=== PATIENT | female | born 1985 | race Caucasian/White ===

== ENCOUNTER 2018-03-20 12:36 | Emergency (ER) | payer SELFPAY ==
[~2018-03-20] VITALS: Ht 165.1 cm; Wt 117.9 kg
[~2018-03-20 12:36] MED LIST: ACHD5005 PO; CEPH500C PO; DCS100C PO; HYDR-3720 PO; IBP800T PO; NAPR275T51 PO; NITR100C3 PO; PHENERGAN; PREN1TAB19 PO
--- OUTSIDE RECORDS SUMMARY | 2018-03-20 12:41 | XMS REPORT ---
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 105536902 Problem Unspecified mood [affective] disorder F39 Active 07995019 Problem Personality disorder F60.9 Active 22828621 Problem HTN (hypertension) I10 Active 96607381 Problem Obesity E66.9 Active 451163141 Problem Panic attacks F41.0 Active 196068582 Problem Bipolar disorder, unspecified F31.9 Active 23381178 ALLERGIES No Known Allergies ENCOUNTERS Encounter Location Date Diagnosis [facility] [id number] [place] [address] 27798- 6989 Jan, [facility] [id number] [place] [address] 77422- 9913 Dec, Panic attacks F41.0 ; Personality disorder F60.9 and Unspecified mood [affective] disorder F39 [facility] [address] [place] [address] 69139- 3200 Jul, Bipolar disorder, unspecified F31.9 ; Panic attacks F41.0 and Personality disorder F60.9 [facility] [id number] [place] [address] 81404- 4278 Jul, Bipolar disorder, unspecified F31.9 ; Panic attacks F41.0 and Personality disorder F60.9 [facility] [address] [place] [address] 00970- 9120 Jun, [facility] [id number] [place] [address] 89665- 0216 May, [facility] [id number] [place] [address] 01270- 8652 16 May, 2017 Bipolar disorder, unspecified F31.9 ; Panic attacks F41.0 and Personality disorder F60.9 [facility] [id number] [place] [address] 57730- 0890 13 May, 2017 Bipolar disorder, unspecified F31.9 ; Panic attacks F41.0 and Personality disorder F60.9 [place] [address] [address]- [address]32 Apr, Bipolar disorder, unspecified F31.9 and Panic attacks F41.0 [facility] [address] 38640 -9395 Mar, Homelessness Z59.0 ; Viral gastroenteritis A08.4 and BMI 40.0-44.9, adult Z68.[address] 8[address]16- 8613 August, Acute adjustment disorder with mixed anxiety and depressed mood F43.23 ; Excessive anger R45.4 and Generalized anxiety disorder F41.1 [facility] [address] [id number] Apr, Dental examination Z01.20 and Dental caries K02.[address] 31433- 8409 Feb, HTN (hypertension) I10 and Obesity E66.9 [place] [address] 57542- 1182 Feb, [address] 01465- 4865 Feb, Bronchitis J40 [place] [address] 42584- 9587 14 Jul, [address] 10803- 6215 Jul, [facility] [place] [facility] [address] [id number] [place] [address] 1300 Sep, [facility] [place] [facility] [address] [id number] [place] [address]- 7556 Sep, [facility] [place] [facility] [address] [id number] [place] [address]- 3377 Sep, [facility] [place] [facility] [address] [id number] [place] [address]- 9229 Sep, [facility] [place] [facility] [address] [id number] [place] [address]- 6474 Sep, [facility] [place] [facility] [address] [id number] [place] [address]- 9288 Sep, [facility] [place] [facility] [address] [id number] [place] [address]- 0622 Sep, [facility] [place] [facility] [address] [id number] [place] [address]- 3361 Sep, [facility] [place] [facility] [address] [id number] [place] [address]- 0402 Feb, [facility] [place] [facility] [address] [id number], [place] [address]- 0691 Feb, [facility] [place] [facility] [address] [id number], [place] [address]- 2486 Jan, [facility] [place] [facility] [address] [id number][place] [address]- 0560 22 Jan, 2013 [facility] [place] [facility] [address] [id number] [place] [address]- 2569 17 Jan, 2013 [facility] [place] [facility] [address] [id number], [place] [address]- 7520 17 Jan, 2013 [facility] [place] [facility] [address] [id number][place] [address]- 4298 14 Jan, 2013 [facility] [place] [facility] [address] [id number], [place] [address]- 7032 13 Jan, 2013 [facility] [address] [id number] [place] [address]- 3700 11 Jan, 2013 [facility] [place] [facility] [address] [id number], [place] [address]- 0088 11 Jan, 2013 [facility] [address] [id number] [place] [address]- 9392 10 Jan, 2013 [facility] [address] [id number] [place] [address]- 3260 10 Jan, 2013 [facility] [address] [id number] [place] [address]- 3494 26 Dec, 2012 [facility] [address] [id number] [place] [address]- 2654 19 Dec, 2012 [facility] [address] [id number] [place] [address]- 3270 17 Dec, 2012 [facility] [address] [id number] [place] [address]- 9977 13 Dec, 2012 [facility] [address] [id number] [place] [address]- 5969 12 Dec, 2012 [facility] [address] [id number] [place] [address]- 6740 13 Nov, 2012 [facility] [address] [id number], [place] [address]- 2390 Jul, [facility] [place] [facility] [address] [id number], [place] [address]- 4275 09 Jul, 2012 [facility] [place] [facility] [address] [id number], [place] [address]- 5708 04 Jul, 2012 [facility] [place] [facility] [address] [id number][place] [address]- 3795 03 Jul, 2012 [facility] [place] [facility] [address] [id number] [place] [address]- 2988 Jul, [facility] [place] [facility] [address] [facility] [id number][place] [address]- 7474 Jul, [facility] [address] [id number] [address]- 8481 Jun, [facility] [address] [address] Jun, [facility] [address] [id number] [address]- 3195 Jun, [facility] [address] [id number], [place] [address]- 1002 Dec, [facility] [address], [place] [address]- 9282 Dec, [facility] [address] [id number], [place] [address]- 6306 Apr, IMMUNIZATIONS No Known Immunizations SOCIAL HISTORY Never Assessed REASON FOR VISIT Psychiatric f/u Ren PLAN OF CARE Activity Details Follow Up 4 Weeks Reason: f/u VITAL SIGNS Height 66 in 2017-12-28 Weight 266.6 lbs 2017-12-28 Heart Rate 92 bpm 2017-12-28 Respiratory Rate 20 2017-12-28 BMI 43.03 kg/m2 2017-12-28 Blood pressure systolic 128 mmHg 2017-12-28 Blood pressure diastolic 86 mmHg 2017-12-28 MEDICATIONS Medication Instructions Dosage Frequency Start Date End Date Duration Status Lisinopril-Hydrochlorothiazide 20-25 MG Orally Once a day take 1 tablet by Oral route 1 time per day 24h 16 Sep, 2013 Not-Taking Oxycodone-Acetaminophen 5-325 MG Orally every 4 hrs 2 tablet as needed 4h Not-Taking Zofran ODT 4 MG Orally every 8 hrs 1 tablet on the tongue and allow to dissolve 8h Mar, 10 days Not-Taking Gabapentin 100 mg Orally Three times a day 1 capsule 8h 26 Dec, 2017 30 day(s) Active Ibuprofen 800 mg take 1 tablet (800 mg) by oral route 3 times per day with food Sep, Not-Taking Crestor 20 mg 1 tablet by Oral route 1 time per day Sep, Not-Taking RESULTS Name Result Date Reference Range URINE DRUG SCREEN (IN HOUSE) Lot # [id number] Exp date 12/2018 Control + COCAINE negative AMPH negative MTD negative THC positive OPIATE negativE BENZO negative PCP negative BAR negative OXY negative MAMP negative BUP negative MDMA negative TCA PROCEDURES Procedure Date Ordered Result Body Site DRUG TEST PRSMV DIR OPT OBS Dec 28, 2017 INSTRUCTIONS MEDICATIONS ADMINISTERED No Known Medications MEDICAL (GENERAL) HISTORY Type Description Date Medical History Hypertension, she said it has been normal lately when it is checked (04/2017) Medical History Broken toe right great toe Surgical History Hernia repair by Dr. Fam Surgical History Tubal ligation Hospitalization History broken toe ER visit 03/2017
--- OUTSIDE RECORDS SUMMARY | 2018-03-20 12:41 | XMS REPORT ---
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 334243251 Problem Bipolar disorder, unspecified F31.9 Active 37089200 Problem HTN (hypertension) I10 Active 98621038 ALLERGIES No Known Allergies ENCOUNTERS Encounter Location Date Diagnosis [place] [address] [address]- 67[address] Jul, Bipolar disorder, unspecified F31.9 ; Panic attacks F41.0 and Personality disorder F60.9 [place] [id number] [place] [address] 41885- 0656 Jul, Bipolar disorder, unspecified F31.9 ; Panic attacks F41.0 and Personality disorder F60.9 [place] [id number] [place] [address] 28562- 8267 Jun, [place] [id number] [place] [address] 30345- 1107 May, [place] [address] 76833- 1596 May, Bipolar disorder, unspecified F31.9 ; Panic attacks F41.0 and Personality disorder F60.9 [place] [id number] [place] [address] 88319- 2928 May, Bipolar disorder, unspecified F31.9 ; Panic attacks F41.0 and Personality disorder F60.9 [facility] [id number] [place] [address] 34426- 2162 Apr, Bipolar disorder, unspecified F31.9 and Panic attacks F41.0 [facility] [address] [place] [address] 90119 -0135 Mar, Homelessness Z59.0 ; Viral gastroenteritis A08.4 and BMI 40.0-44.9, adult Z68.41 [facility] [id number] [place] [address] 16206- 8701 August, Acute adjustment disorder with mixed anxiety and depressed mood F43.23 ; Excessive anger R45.4 and Generalized anxiety disorder F41.1 [facility] [id number] [place] [address] [id number] 04 Apr, 2015 Dental examination Z01.20 and Dental caries K02.9 [facility] [id number] [place] [address] 48566- 0267 Feb, HTN (hypertension) I10 and Obesity E66.9 [facility] [address] 56108- 9637 Feb, [facility] [id number] [place] [address] 03329- 3016 Feb, Bronchitis J40 [facility] [id number] [place] [address] 42443- 1960 14 Jul, 2014 [facility] [id number] [place] [address] 83083- 2304 13 Jul, 2014 [facility] [address] 96715- 4663 Sep, [facility] [address] 85566- 6333 Sep, [facility] [id number] [place] [address] 56167- 7626 Sep, [facility] [place] [facility] [address] [id number] [place] [address]- 4047 Sep, [facility] [place] [facility] [address] [id number] [place] [address]- 5847 Sep, [facility] [place] [facility] [address] [id number] [place] [address]- 0632 Sep, [facility] [place] [facility] [address] [id number] [place] [address]- 6619 Sep, [facility] [place] [facility] [address] [id number] [place] [address]- 4389 Sep, [facility] [place] [facility] [address] [id number] [place] [address]- 1300 Feb, [facility] [place] [facility] [address] [id number] [place] [address]- 7705 Feb, [facility] [place] [facility] [address] [id number] [place] [address]- 5529 Jan, [facility] [place] [facility] [address] [id number] [place] [address]- 3601 Jan, [facility] [place] [facility] [address] [id number] [place] [address]- 5768 17 Jan, 2013 [facility] [place] [facility] [address] [id number] [place] [address]- 7483 17 Jan, 2013 [facility] [place] [facility] [address] [id number] [place] [address]- 6942 14 Jan, 2013 [facility] [place] [facility] [address] [id number] [place] [address]- 7496 13 Jan, 2013 [facility] [place] [facility] [address] [id number] [place] [address]- 0642 11 Jan, 2013 [facility] [place] [facility] [address] [id number] [place] [address]- 3199 11 Jan, 2013 [facility] [place] [facility] [address] [id number] [place] [address]- 5170 10 Jan, 2013 [facility] [address] [id number] [place] [address]- 2360 10 Jan, 2013 [facility] [place] [facility] [address] [id number] [place] [address]- 1907 26 Dec, 2012 [facility] [place] [facility] [address] [id number] [place] [address]- 9871 19 Dec, 2012 [facility] [place] [facility] [address] [id number] [place] [address]- 6474 17 Dec, 2012 [facility] [address] [id number] [place] [address]- 7197 13 Dec, 2012 [facility] [place] [facility] [address] [id number] [place] [address]- 2878 12 Dec, 2012 [facility] [address] [id number] [place] [address]- 6761 Nov, [facility] [place] [facility] [address] [id number], [place] [address]- 0941 Jul, [facility] [place] [facility] [address] [id number] [place] [address]- 2893 Jul, [facility] [place] [facility] [address] [id number] [place] [address]- 9427 Jul, [facility] [place] [facility] [address] [id number], [place] [address]- 3508 Jul, [facility] [place] [facility] [address] [id number], [place] [address]- 7882 Jul, [facility] [place] [facility] [address] [id number] [place] 5905 Jul, [facility] [place] [facility] [address] [id number], [place] [address]- 8928 Jun, [facility] [place] [facility] [address] [id number] [place] 9943 Jun, [facility] [place] [facility] [address] [facility] [id number] [place] [address]- 1824 Jun, [facility] [address] [facility] [id number], [place] [address]- 6374 Dec, [facility] [address] [facility] [id number], [place] [address]- 6815 Dec, [facility] [address] [facility] [id number], [place] [address]- 9270 Apr, IMMUNIZATIONS No Known Immunizations SOCIAL HISTORY Never Assessed REASON FOR VISIT Psychiatric f/u PLAN OF CARE Activity Details Follow Up 3 Weeks Reason:BH f/u VITAL SIGNS Height 66 in 2017-07-14 Weight 268 lbs 2017-07-14 Heart Rate 90 bpm 2017-07-14 Respiratory Rate 20 2017-07-14 BMI 43.25 kg/m2 2017-07-14 Blood pressure systolic 132 mmHg 2017-07-14 Blood pressure diastolic 78 mmHg 2017-07-14 MEDICATIONS Medication Instructions Dosage Frequency Start Date End Date Duration Status Zofran ODT 4 MG Orally every 8 hrs 1 tablet on the tongue and allow to dissolve 8h Mar, 10 days Not-Taking Lisinopril-Hydrochlorothiazide 20-25 MG Orally Once a day take 1 tablet by Oral route 1 time per day 24h Sep, Not-Taking Trileptal 150 MG Orally Twice a day 1 tablet 12h Jul, 30 day(s ) Active Crestor 20 mg 1 tablet by Oral route 1 time per day Sep, Not-Taking Oxycodone-Acetaminophen 5-325 MG Orally every 4 hrs 2 tablet as needed 4h Not-Taking Ibuprofen 800 mg take 1 tablet (800 mg) by oral route 3 times per day with food Sep, Not-Taking RESULTS No Results PROCEDURES No Known procedures INSTRUCTIONS MEDICATIONS ADMINISTERED No Known Medications MEDICAL (GENERAL) HISTORY Type Description Date Medical History Hypertension, she said it has been normal lately when it is checked (04/2017) Medical History Broken toe right great toe Surgical History Hernia repair by Dr. Fam Surgical History Tubal ligation Hospitalization History broken toe ER visit 03/2017
--- OUTSIDE RECORDS SUMMARY | 2018-03-20 12:41 | XMS REPORT ---
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 507435249 Problem Bipolar disorder, unspecified F31.9 Active 26555481 Problem HTN (hypertension) I10 Active 40281807 ALLERGIES No Information ENCOUNTERS Encounter Location Date Diagnosis [place] [address] [address]- [address]69 Jul, Bipolar disorder, unspecified F31.9 ; Panic attacks F41.0 and Personality disorder F60.9 [place] [address] 56717- 2815 Jul, Bipolar disorder, unspecified F31.9 ; Panic attacks F41.0 and Personality disorder F60.9 [place] [address] [id number] [place] [address] 03521- 0121 Jun, [place] [address] [place] [address] [id number] [place] [address] 97981- 9915 May, [place] [address] 11676- 6388 May, Bipolar disorder, unspecified F31.9 ; Panic attacks F41.0 and Personality disorder F60.9 [place] [address] [place] [id number] [place] [address] 26617- 3068 May, Bipolar disorder, unspecified F31.9 ; Panic attacks F41.0 and Personality disorder F60.9 [facility] [id number] [place] [address] 76000- 1263 Apr, Bipolar disorder, unspecified F31.9 and Panic attacks F41.0 [facility] [address] [place] [address] 54060 -0639 Mar, Homelessness Z59.0 ; Viral gastroenteritis A08.4 and BMI 40.0-44.9, adult Z68.41 [facility] [id number] [place] [address] 19259- 7032 August, Acute adjustment disorder with mixed anxiety and depressed mood F43.23 ; Excessive anger R45.4 and Generalized anxiety disorder F41.1 [facility] [id number] [place] [address] [id number] 04 Apr, 2015 Dental examination Z01.20 and Dental caries K02.9 [facility] [address] [id number] [place] [address] 60635- 9261 Feb, HTN (hypertension) I10 and Obesity E66.9 [facility] [address] 53696- 5895 Feb, [facility] [address] [place] [id number] [place] [address] 05555- 9407 Feb, Bronchitis J40 [facility] [address] [place] [address] [id number] [place] [address] 63808- 5136 14 Jul, 2014 [facility] [address] [place] [id number] [place] [address] 86115- 1184 13 Jul, 2014 [facility] [address] 60297- 6894 Sep, [facility] [address] 93044- 8790 Sep, [facility] [address] [place] [address] [id number] [place] [address] 18822- 7013 Sep, [facility] [place] [facility] [address] [id number] [place] [address]- 3671 Sep, [facility] [place] [facility] [address] [id number] [place] [address]- 3320 Sep, [facility] [place] [facility] [address] [id number] [place] [address]- 9798 Sep, [facility] [place] [facility] [address] [id number] [place] [address]- 4080 Sep, [facility] [place] [facility] [address] [id number] [place] [address]- 5418 Sep, [facility] [place] [facility] [address] [id number] [place] [address]- 6442 Feb, [facility] [place] [facility] [address] [id number] [place] [address]- 4387 Feb, [facility] [place] [facility] [address] [id number] [place] [address]- 1402 Jan, [facility] [place] [facility] [address] [id number] [place] [address]- 9521 Jan, [facility] [place] [facility] [address] [id number] [place] [address]- 2565 17 Jan, 2013 [facility] [place] [facility] [address] [id number] [place] [address]- 6612 17 Jan, 2013 [facility] [place] [facility] [address] [id number] [place] [address]- 3785 14 Jan, 2013 [facility] [place] [facility] [address] [id number] [place] [address]- 1271 13 Jan, 2013 [facility] [place] [facility] [address] [id number] [place] [address]- 5432 11 Jan, 2013 [facility] [place] [facility] [address] [id number] [place] [address]- 8265 11 Jan, 2013 [facility] [place] [facility] [address] [id number] [place] [address]- 5821 10 Jan, 2013 [facility] [address] [id number] [place] [address]- 0767 10 Jan, 2013 [facility] [place] [facility] [address] [id number] [place] [address]- 2742 26 Dec, 2012 [facility] [place] [facility] [address] [id number] [place] [address]- 1298 19 Dec, 2012 [facility] [place] [facility] [address] [id number] [place] [address] 17 Dec, 2012 [facility] [address] [id number] [place] [address] 13 Dec, 2012 [facility] [place] [facility] [address] [id number] [place] [address] 12 Dec, 2012 [facility] [address] [id number] [place] [address] Nov, [facility] [place] [facility] [address] [id number], [place] [address] Jul, [facility] [place] [facility] [address] [id number] [place] [address] Jul, [facility] [place] [facility] [address] [id number] [place] [address] Jul, [facility] [place] [facility] [address] [id number], [place] [address] Jul, [facility] [place] [facility] [address] [id number], [place] [address] Jul, [facility] [place] [facility] [address] [id number] [place] [address] Jul, [facility] [place] [facility] [address] [id number], [place] [address] Jun, [facility] [place] [facility] [address] [id number] [place] [address] Jun, [facility] [place] [facility] [address] [facility] [id number] [place] [address] Jun, [facility] [address] [facility] [id number] [place] [address] Dec, [facility] [address] [facility] [id number], [place] [address] Dec, [facility] [address] [facility] [id number], [place] [address] Apr, IMMUNIZATIONS No Known Immunizations SOCIAL HISTORY Never Assessed REASON FOR VISIT Requests return call PLAN OF CARE VITAL SIGNS MEDICATIONS No Known Medications RESULTS No Results PROCEDURES No Known procedures [...]
--- OUTSIDE RECORDS SUMMARY | 2018-03-20 12:41 | XMS REPORT ---
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.81 Active 072223783 Problem Bipolar disorder, unspecified F31.9 Active 29119568 Problem HTN (hypertension) I10 Active 59843204 ALLERGIES No Information ENCOUNTERS Encounter Location Date Diagnosis [place] [address] [address] Jul, Bipolar disorder, unspecified F31.9 ; Panic attacks F41.0 and Personality disorder F60.9 [place] [address] [address] Jul, Bipolar disorder, unspecified F31.9 ; Panic attacks F41.0 and Personality disorder F60.9 [place] [address] [place] [id number] [place] [address]- 9686 Jun, [place] [address] [place] [id number] [place] [address]- 6849 May, [place] [address] [address] May, Bipolar disorder, unspecified F31.9 ; Panic attacks F41.0 and Personality disorder F60.9 [place] [address] [place] [id number] [place] [address]47- 3722 May, Bipolar disorder, unspecified F31.9 ; Panic attacks F41.0 and Personality disorder F60.9 [facility] [place] [address] [place] [id number] [place] [address]71- 7934 Apr, Bipolar disorder, unspecified F31.9 and Panic attacks F41.0 [facility] [id number] [place] [address] -[address] Mar, Homelessness Z59.0 ; Viral gastroenteritis A08.4 and BMI 40.0-44.9, adult Z68.41 [facility] [place] [address] [place] [id number] [place] [address] 94238- 6130 August, Acute adjustment disorder with mixed anxiety and depressed mood F43.23 ; Excessive anger R45.4 and Generalized anxiety disorder F41.1 [facility] [address] [place] [id number] [place] [id number] 04 Apr, 2015 Dental examination Z01.20 and Dental caries K02.9 [facility] [place] [address] [place] [id number] [place] [address] 91056- 1346 Feb, HTN (hypertension) I10 and Obesity E66.9 [facility] [place] [address] [address] Feb, [facility] [place] [address] [place] [id number] [place] [address] 90373- 8182 Feb, Bronchitis J40 [facility] [place] [address] [place] [id number] [place] [address] 18[address]- 3754 14 Jul, 2014 [facility] [place] [address] [place] [id number] [place] [address] 06642- 5758 13 Jul, 2014 [facility] [place] [address] [address]- [address] Sep, [facility] [place] [address] [address]- [address] Sep, [facility] [place] [address] [place] [id number] [place] [address] 65194- 2163 Sep, [facility] [place] [facility] [address] [id number] [place] [address] 7573 Sep, [facility] [place] [facility] [address] [id number] [place] [address]- 3544 Sep, [facility] [place] [facility] [address] [id number] [place] [address]- 2305 Sep, [facility] [place] [facility] [address] [id number] [place] [address]- 7426 Sep, [facility] [place] [facility] [address] [id number] [place] [address]- 9348 Sep, [facility] [place] [facility] [address] [id number] [place] [address]- 6493 Feb, [facility] [place] [facility] [address] [id number] [place] [address]- 2273 Feb, [facility] [place] [facility] [address] [id number] [place] [address]- 9809 Jan, [facility] [place] [facility] [address] [id number] [place] [address]- 8849 Jan, [facility] [place] [facility] [address] [id number] [place] [address]- 4609 17 Jan, 2013 [facility] [place] [facility] [address] [id number] [place] [address]- 2952 17 Jan, 2013 [facility] [place] [facility] [address] [id number] [place] [address]- 3585 14 Jan, 2013 [facility] [place] [facility] [address] [id number] [place] [address]- 7064 13 Jan, 2013 [facility] [place] [facility] [address] [id number] [place] [address]- 0014 11 Jan, 2013 [facility] [place] [facility] [address] [id number] [place] [address]- 8623 11 Jan, 2013 [facility] [place] [facility] [address] [id number] [place] [address]- 1800 10 Jan, 2013 [facility] [address] [id number] [place] [address]- 9645 10 Jan, 2013 [facility] [place] [facility] [address] [id number] [place] [address]- 4851 26 Dec, 2012 [facility] [place] [facility] [address] [id number] [place] [address]- 8406 19 Dec, 2012 [facility] [place] [facility] [address] [id number] [place] [address]- 1714 17 Dec, 2012 [facility] [address] [id number] [place] [address]- 2016 13 Dec, 2012 [facility] [place] [facility] [address] [id number] [place] [address]- 0945 12 Dec, 2012 [facility] [address] [id number] [place] [address]- 7668 Nov, [facility] [place] [facility] [address] [id number] [address] 3578 Jul, [facility] [place] [facility] [address] [id number] [place] [address]- 4238 Jul, [facility] [place] [facility] [address] [id number] [place] [address]- 4775 Jul, [facility] [place] [facility] [address] [id number] [address]- 1367 Jul, [facility] [place] [facility] [address] [id number] [place] [address]- 8046 Jul, [facility] [place] [facility] [address] [id number] [place] [address]908 Jul, [facility] [place] [facility] [address] [id number] [address]- 4060 Jun, [facility] [place] [facility] [address] [id number] [place] [address] Jun, [facility] [place] [facility] [address] [facility] [id number] [place] [address]- 7816 Jun, [facility] [place] [address] [facility] [id number] [place] [address]- 0816 Dec, [facility] [place] [address] [facility] [id number] [place] [address]- 9356 Dec, [facility] [place] [address] [facility] [id number] [place] [address]- 4336 Apr, IMMUNIZATIONS No Known Immunizations SOCIAL HISTORY Never Assessed REASON FOR VISIT f/u PLAN OF CARE Activity Details Follow Up 2 Weeks Reason: VITAL SIGNS MEDICATIONS No Known Medications RESULTS No Results PROCEDURES Procedure Date Ordered Result Body Site Psychotherapy, patient &/family, 30 minutes, established patient July 08, 2017 INSTRUCTIONS MEDICATIONS ADMINISTERED No Known Medications MEDICAL (GENERAL) HISTORY Type Description Date Medical History Hypertension, she said it has been normal lately when it is checked (04/2017) Medical History Broken toe right great toe Surgical History Hernia repair by Dr. Fam Surgical History Tubal ligation Hospitalization History broken toe ER visit 03/2017
--- OUTSIDE RECORDS SUMMARY | 2018-03-20 12:41 | XMS REPORT ---
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 Active 187575168 Problem Bipolar disorder, unspecified F31.9 Active 57323420 Problem HTN (hypertension) I10 Active 58275966 ALLERGIES No Known Allergies ENCOUNTERS Encounter Location Date Diagnosis [place] [address] [address] Jul, Bipolar disorder, unspecified F31.9 ; Panic attacks F41.0 and Personality disorder F60.9 [place] [address] [place] [id number] [place] [address]- [address]13 Jul, Bipolar disorder, unspecified F31.9 ; Panic attacks F41.0 and Personality disorder F60.9 [place] [address] [place] [id number] [place] [address]14- 0410 Jun, [place] [address] [place] [id number] [place] [address] 11429- 7028 May, [place] [address] [address]- [address] May, Bipolar disorder, unspecified F31.9 ; Panic attacks F41.0 and Personality disorder F60.9 [place] [address] [place] [id number] [place] [address] 04731- 6532 May, Bipolar disorder, unspecified F31.9 ; Panic attacks F41.0 and Personality disorder F60.9 [facility] [address] [place] [id number] [place] [address] 64840- 1031 Apr, Bipolar disorder, unspecified F31.9 and Panic attacks F41.0 [facility] [address] [place] [id number] [place] [address]117 -6737 Mar, Homelessness Z59.0 ; Viral gastroenteritis A08.4 and BMI 40.0-44.9, adult Z68.41 [facility] [address] [address]- 3682 August, Acute adjustment disorder with mixed anxiety and depressed mood F43.23 ; Excessive anger R45.4 and Generalized anxiety disorder F41.1 [facility] [address] [id number] Apr, 2015 Dental examination Z01.20 and Dental caries K02.9 [facility] [address] [address]- 6748 Feb, HTN (hypertension) I10 and Obesity E66.9 [facility] [address] [address]- 1670 09 Feb, 2015 [facility] [address] [place] [id number] [place] [address] 01121- 9041 Feb, Bronchitis J40 [facility] [address] 03137- 6701 14 Jul, 2014 [facility] [address] [place] [id number] [place] [address] 91578- 8548 13 Jul, 2014 [facility] [address] [address]25- 8227 Sep, [facility] [address] 05834- 9413 Sep, [facility] [address] 02959- 0765 Sep, [facility] [place] [facility] [address] [id number] [place] [address]- 0794 Sep, [facility] [place] [facility] [address] [id number] [place] [address]- 9751 Sep, [facility] [place] [facility] [address] [id number] [place] [address]- 9771 Sep, [facility] [place] [facility] [address] [id number] [place] [address]- 8534 Sep, [facility] [place] [facility] [address] [id number] [place] [address]- 8970 Sep, [facility] [place] [facility] [address] [id number] [place] [address]- 7603 Feb, [facility] [place] [facility] [address] [id number] [place] [address]- 8015 Feb, [facility] [place] [facility] [address] [id number] [place] [address]- 2883 Jan, [facility] [place] [facility] [address] [id number] [place] [address]- 6333 22 Jan, 2013 [facility] [place] [facility] [address] [id number], [place] [address]- 4773 Jan, [facility] [place] [facility] [address] [id number] [place] [address]- 6851 17 Jan, 2013 [facility] [place] [facility] [address] [id number], [place] [address]- 3922 14 Jan, 2013 [facility] [place] [facility] [address] [id number] [place] [address]- 1870 13 Jan, 2013 [facility] [place] [facility] [address] [id number] [place] [address]- 5787 11 Jan, 2013 [facility] [place] [facility] [address] [id number], [place] [address]- 6656 11 Jan, 2013 [facility] [place] [facility] [address] [id number], [place] [address]- 4161 10 Jan, 2013 [facility] [address] [id number] [place] [address]- 2214 10 Jan, 2013 [facility] [place] [facility] [address] [id number] [place] [address]- 6631 26 Dec, 2012 [facility] [address] [id number] [place] [address]- 2569 19 Dec, 2012 [facility] [place] [facility] [address] [id number] [place] [address]- 1218 17 Dec, 2012 [facility] [address] [id number] [place] [address]- 1313 13 Dec, 2012 [facility] [address] [id number] [place] [address]- 7018 12 Dec, 2012 [facility] [address] [id number] [place] [address]- 4986 Nov, [facility] [address] [id number] [place] [address]- 1510 Jul, [facility] [address] [id number] [place] [address]- 1076 Jul, [facility] [place] [facility] [address] [id number] [place] [address]- 1096 Jul, [facility] [address] [id number], [place] [address]- 7124 Jul, [facility] [place] [facility] [address] [id number], [place] [address]- 8675 Jul, [facility] [place] [facility] [address] [id number] [place] [address]- 9313 Jul, [facility] [place] [facility] [address] [id number] [place] [address]- 6639 Jun, [facility] [place] [facility] [address] [id number] [place] [address]- 7908 Jun, [facility] [place] [facility] [address] [id number] [place] [address]- 1229 Jun, [facility] [address] [facility] [id number], [place] [address]- 2581 Dec, [facility] [address] [facility] [id number][place] [address]596 Dec, [facility] [address] [facility] [id number][place] [address] Apr, IMMUNIZATIONS No Known Immunizations SOCIAL HISTORY Never Assessed REASON FOR VISIT Vomiting/diarrhea lili hernández PLAN OF CARE Activity Details Follow Up prn Reason: VITAL SIGNS Height 66 in 2017-04-01 Weight 265.2 lbs 2017-04-01 Temperature 97.3 degrees Fahrenheit 2017-04-01 Heart Rate 86 bpm 2017-04-01 Respiratory Rate 18 2017-04-01 BMI 42.80 kg/m2 2017-04-01 Blood pressure systolic 132 mmHg 2017-04-01 Blood pressure diastolic 92 mmHg 2017-04-01 MEDICATIONS Medication Instructions Dosage Frequency Start Date End Date Duration Status Ibuprofen 800 mg take 1 tablet (800 mg) by oral route 3 times per day with food Sep, Not-Taking Lisinopril-Hydrochlorothiazide 20-25 MG Orally Once a day take 1 tablet by Oral route 1 time per day 24h Sep, Not-Taking Oxycodone-Acetaminophen 5-325 MG Orally every 4 hrs 2 tablet as needed 4h Not-Taking Zofran ODT 4 MG Orally every 8 hrs 1 tablet on the tongue and allow to dissolve 8h Mar, 10 days Active Crestor 20 mg 1 tablet by Oral route 1 time per day Sep, Not-Taking RESULTS No Results PROCEDURES No [...]
--- OUTSIDE RECORDS SUMMARY | 2018-03-20 12:42 | XMS REPORT | Continuity of Care Document ---
Author Author [facility] Organization [facility] Address Unknown Phone Unavailable Care Team Providers Care Systems Security Consultant Name Role Phone [facility] Insurance Providers Payer Name Policy Number Subscriber Name Relationship Self Pay Rasta Luna 01 Self / Same As Patient Advance Directives Directive Response Recorded Date Advance Directives N 01/14/13 10:31am Health Care Power of Histologist Technologist N 01/14/13 10:31am Organ Donor Y 01/14/13 10:31am Problems No Known Problems or Medical conditions. Social History History Response Recorded Date/Time Alcohol Use Occasionally Uses 01/14/13 10 :31am Recreational Drug Use N 01/14/13 10:31am Sexually Transmitted Disease N 01/14/13 10:31am HIV/AIDS N 01/14/13 10:31am Allergies, Adverse Reactions, Alerts Allergen Type Severity Reaction Last Updated No Known Drug Allergies 06/27/12 Medications Medication Dose Units Route Sig Qty Days Nitrofurantoin Macrocrystals (Macrobid 100 Mg) 1 Cap PO BID 14 [Phenergan Tabs] ?MG NEEDED Cephalexin Monohydrate (Cephalexin) 1 Each PO TID 7 Hydrocodone Bit/Acetaminophen (Hydrocodon-Acetaminophen 5-325) 1 Each PO Q4H 14 Naproxen Sodium (Anaprox) 275 Mg PO Q12H 20 Response Recorded Date/Time Status not known Unknown Results No Known Relevant Diagnostic Tests, Laboratory Data and/or Discharge Summary. Encounters Encounter Location Date/Time Departed Emergency Room [facility] [place] [facility] 10:23am
--- OUTSIDE RECORDS SUMMARY | 2018-03-20 12:42 | XMS REPORT ---
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.81 Active 773178204 Problem Bipolar disorder, unspecified F31.9 Active 62615076 Problem HTN (hypertension) I10 Active 16970319 ALLERGIES No Known Allergies ENCOUNTERS Encounter Location Date Diagnosis [place] [id number] [address] Jul, Bipolar disorder, unspecified F31.9 ; Panic attacks F41.0 and Personality disorder F60.9 [place] [address] [address] Jul, Bipolar disorder, unspecified F31.9 ; Panic attacks F41.0 and Personality disorder F60.9 [place] [address] [place] [id number] [place] [address]44- 8810 Jun, [place] [address] [place] [id number] [place] [address] 67591- 5140 May, [place] [address] [address] May, Bipolar disorder, unspecified F31.9 ; Panic attacks F41.0 and Personality disorder F60.9 [place] [address] [place] [id number] [place] [address] 27850- 2299 May, Bipolar disorder, unspecified F31.9 ; Panic attacks F41.0 and Personality disorder F60.9 [facility] [address] [place] [id number] [place] [address] 84698- 3207 Apr, Bipolar disorder, unspecified F31.9 and Panic attacks F41.0 [facility] [id number] [place] [address] -[address]458 Mar, Homelessness Z59.0 ; Viral gastroenteritis A08.4 and BMI 40.0-44.9, adult Z68.41 [facility] [address] [place] [id number] [place] [address] 63193- 9123 August, Acute adjustment disorder with mixed anxiety and depressed mood F43.23 ; Excessive anger R45.4 and Generalized anxiety disorder F41.1 [facility] [address] [place] [id number] [place] [id number] 04 Apr, 2015 Dental examination Z01.20 and Dental caries K02.9 [facility] [address] [place] [id number] [place] [address] 27107- 4933 Feb, HTN (hypertension) I10 and Obesity E66.9 [facility] [address] [address]- 8729 Feb, [facility] [address] [place] [id number] [place] [address] 62020- 0859 Feb, Bronchitis J40 [facility] [address] [place] [id number] [place] [address] 72858- 4254 14 Jul, 2014 [facility] [address] [place] [id number] [place] [address] 55802- 5301 13 Jul, 2014 [facility] [address] 99853- 4999 Sep, [facility] [address] 22401- 8744 Sep, [facility] [address] [place] [id number] [place] [address] 16972- 9585 Sep, [facility] [place] [facility] [address] [id number] [place] [address]- 6862 Sep, [facility] [place] [facility] [address] [id number] [place] [address]- 3665 Sep, [facility] [place] [facility] [address] [id number] [place] [address]- 0499 Sep, [facility] [place] [facility] [address] [id number] [place] [address]- 9727 Sep, [facility] [place] [facility] [address] [id number] [place] [address]- 0825 Sep, [facility] [place] [facility] [address] [id number] [place] [address]- 7294 Feb, [facility] [place] [facility] [address] [id number] [place] [address]- 4042 Feb, [facility] [place] [facility] [address] [id number] [place] [address]- 8577 Jan, [facility] [place] [facility] [address] [id number] [place] [address]- 3249 Jan, [facility] [place] [facility] [address] [id number] [place] [address]- 7963 17 Jan, 2013 [facility] [place] [facility] [address] [id number] [place] [address]- 7807 17 Jan, 2013 [facility] [place] [facility] [address] [id number] [place] [address]- 6147 14 Jan, 2013 [facility] [place] [facility] [address] [id number] [place] [address]- 5868 13 Jan, 2013 [facility] [place] [facility] [address] [id number] [place] [address]- 9187 11 Jan, 2013 [facility] [place] [facility] [address] [id number] [place] [address]- 7918 11 Jan, 2013 [facility] [place] [facility] [address] [id number] [place] [address]- 2974 10 Jan, 2013 [facility] [address] [id number] [place] [address]- 6986 10 Jan, 2013 [facility] [place] [facility] [address] [id number] [place] [address]- 1295 26 Dec, 2012 [facility] [place] [facility] [address] [id number] [place] [address]- 9501 19 Dec, 2012 [facility] [place] [facility] [address] [id number] [place] [address]- 0852 17 Dec, 2012 [facility] [address] [id number] [place] [address]- 4384 13 Dec, 2012 [facility] [place] [facility] [address] [id number] [place] [address]- 9407 12 Dec, 2012 [facility] [address] [id number] [place] [address]- 1543 Nov, [facility] [place] [facility] [address] [id number][place] [address]- 6343 Jul, [facility] [place] [facility] [address] [id number] [place] [address]- 9139 Jul, [facility] [place] [facility] [address] [id number] [place] [address]- 9879 Jul, [facility] [place] [facility] [address] [id number], [place] [address]- 0745 Jul, [facility] [place] [facility] [address] [id number], [place] [address]- 8164 Jul, [facility] [place] [facility] [address] [id number] [place] [address] Jul, [facility] [place] [facility] [address] [id number], [place] [address]- 9929 Jun, [facility] [place] [facility] [address] [id number] [place] [address] Jun, [facility] [place] [facility] [address] [facility] [id number] [place] [address]- 5343 Jun, [facility] [address] [facility] [id number], [place] [address]- 4414 Dec, [facility] [address] [facility] [id number], [place] [address]- 3460 Dec, [facility] [address] [facility] [id number], [place] [address]- 8138 Apr, IMMUNIZATIONS No Known Immunizations SOCIAL HISTORY Never Assessed REASON FOR VISIT intake PLAN OF CARE Activity Details Follow Up 3 Weeks Reason: f/u VITAL SIGNS Height 66 in 2017-05-17 Weight 270.1 lbs 2017-05-17 Heart Rate 76 bpm 2017-05-17 Respiratory Rate 20 2017-05-17 BMI 43.59 kg/m2 2017-05-17 Blood pressure systolic 142 mmHg 2017-05-17 Blood pressure diastolic 86 mmHg 2017-05-17 MEDICATIONS Medication Instructions Dosage Frequency Start Date End Date Duration Status Zofran ODT 4 MG Orally every 8 hrs 1 tablet on the tongue and allow to dissolve 8h Mar, 10 days Not-Taking Lisinopril-Hydrochlorothiazide 20-25 MG Orally Once a day take 1 tablet by Oral route 1 time per day 24h Sep, Not-Taking Ibuprofen 800 mg take 1 tablet (800 mg) by oral route 3 times per day with food Sep, Not-Taking Crestor 20 mg 1 tablet by Oral route 1 time per day Sep, Not-Taking Latuda 20 mg Orally Once a day at supper time with food 1 tablet May, 30 day(s) Active Oxycodone-Acetaminophen 5-325 MG Orally every 4 hrs 2 tablet as needed 4h Not-Taking RESULTS No Results PROCEDURES No Known [...]
--- OUTSIDE RECORDS SUMMARY | 2018-03-20 12:42 | XMS REPORT ---
Author Author KATHERIN BAILEY [facility]Clinical[employer] Address Unknown Phone Unavailable Care Team Providers Care Differential Specialist Name Role Phone KATHERIN BAILEY CP Unavailable Allergies, Adverse Reactions, Alerts Substance Reaction Event Type N.K.D.A. 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 Active Problem HTN (hypertension) I10 Active Assessment Dental examination Z01.20 Active Assessment Dental caries K02.9 Active Medications Medication Code System Code Instructions Start Date End Date Status Dosage Lisinopril-Hydrochlorothiazide [facility] [address]-86 20-25 MG Orally Once a day September 17, 2013 take 1 tablet by Oral route 1 time per day Procedures Procedure Coding System Code Date PANORAMIC FILM SEE ALSO CODE 40193 CPT-4 D0330 Apr 07, 2015 EXTRAC ERUPTED TOOTH/EXPOSED ROOT CPT-4 D7140 Apr 07, 2015 LTD ORAL EVALUATION - PROBLEM FOCUS CPT-4 D0140 Apr 07, 2015 Vital Signs Date/Time: Apr 07, 2015 Blood Pressure Diastolic 72 mmHg Blood Pressure Systolic 112 mmHg Height 66 in Results No Known Results Summary Purpose eClinicalWorks Submission
--- OUTSIDE RECORDS SUMMARY | 2018-03-20 12:42 | XMS REPORT ---
Author SHRAVAN Smith [facility] eClinicalWorks Address Unknown Phone Unavailable Care Team Providers Care Casting Machine Adjuster Name Role Phone SHRAVAN ROBLES CP Unavailable Allergies, Adverse Reactions, Alerts Substance Reaction Event Type N.K.D.A. Info Not Available Non Drug Allergy Problems Problem Type Condition Code Onset Dates Condition Status Problem Incomplete spontaneous without mention of complication 634.91 Active Problem Encounter for removal of intrauterine contraceptive device V25.12 Active Problem Other general counseling and advice for contraceptive management V25.09 Active Problem Complete spontaneous without mention of complication 634.92 Active Problem Screening for hypertension V81.1 Active Problem General counseling for prescription of oral contraceptives V25.01 Active Problem Threatened , unspecified as to episode of care 640.00 Active Problem examination or test, positive result V72.42 Active Problem Rhesus isoimmunization affecting management of mother, 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 Problem Cough 786.2 Active Problem Screening for malignant neoplasm of the cervix V76.2 Active Problem Pain in joint, pelvic region and thigh 719.45 Active Problem Routine general medical examination at health care facility V70.0 Active Problem Benign essential hypertension complicating , childbirth, and the puerperium, unspecified as to episode of care 642.00 Active Problem Obesity complicating , childbirth, or the puerperium, unspecified as to episode of care or not applicable 649.10 Active Problem Cystic fibrosis gene carrier V83.81 Active Problem with history of V23.2 Active Problem Nonspecific elevation of levels of transaminase or lactic acid dehydrogenase (LDH) 790.4 Active Problem Essential hypertension, benign 401.1 Active Problem Dehydration 276.51 Active Problem Screening examination for venereal disease V74.5 Active Assessment Bronchitis J40 Active Problem Other and unspecified hyperlipidemia 272.4 Active Problem Unspecified high-risk V23.9 Active Medications Medication Code System Code Instructions Start Date End Date Status Dosage Bactrim DS [facility] [address]-16 800-160 MG Orally 2 times a day Feb 05, 2015 Feb 15, 2015 1 tablet Procedures Procedure Coding System Code Date Office Visit, Est Pt., Level 3 CPT-4 11742 Feb 05, 2015 Vital Signs Date/Time: Feb 05, 2015 Temperature 98.0 F Weight 289 lbs Height 66 in BMI 46.64 Index Blood Pressure Diastolic 88 mmHg Blood Pressure Systolic 138 mmHg Cardiac Monitoring Heart Rate 80 bpm Results No Known Results Summary Purpose eClinicalWorks Submission
--- OUTSIDE RECORDS SUMMARY | 2018-03-20 12:42 | XMS REPORT ---
Author RAEANN Arias [facility] eClinical[employer] Address Unknown Phone Unavailable Care Team Providers Care Tinning Equipment Tender Name Role Phone RAEANN HAYES CP Unavailable Allergies, Adverse Reactions, Alerts Substance Reaction Event Type N.K.D.A. 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 Active Problem HTN (hypertension) I10 Active Assessment HTN (hypertension) I10 Active Assessment Obesity E66.9 Active Medications Medication Code System Code Instructions Start Date End Date Status Dosage Oxycodone-Acetaminophen [facility] [address]-78 5-325 MG Orally every 4 hrs 2 tablet as needed Lisinopril-Hydrochlorothiazide [facility] [address]-72 20-25 MG Orally Once a day September 17, 2013 take 1 tablet by Oral route 1 time per day Procedures Procedure Coding System Code Date Office Visit, Est Pt., Level 3 CPT-4 86509 Feb 21, 2015 Vital Signs Date/Time: Feb 21, 2015 Temperature 97.3 F Weight 291.2 lbs Height 66 in BMI 47.00 Index Blood Pressure Diastolic 98 mmHg Blood Pressure Systolic 140 mmHg Cardiac Monitoring Heart Rate 84 bpm Results No Known Results Summary Purpose eClinicalWorks Submission
--- OUTSIDE RECORDS SUMMARY | 2018-03-20 12:42 | XMS REPORT ---
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 Active 159033571 Problem Bipolar disorder, unspecified F31.9 Active 88668321 Problem HTN (hypertension) I10 Active 23459594 ALLERGIES No Information ENCOUNTERS Encounter Location Date Diagnosis [place] [address] [address] Jul, Bipolar disorder, unspecified F31.9 ; Panic attacks F41.0 and Personality disorder F60.9 [place] [address] [address]- [address] Jul, Bipolar disorder, unspecified F31.9 ; Panic attacks F41.0 and Personality disorder F60.9 [place] [address] [place] [id number] [place] [address] 71355- 7046 Jun, [place] [address] [address]- [address]852 May, [place] [address] [place] [id number] [place] [address] 13684- 0606 May, Bipolar disorder, unspecified F31.9 ; Panic attacks F41.0 and Personality disorder F60.9 [place] [address] [place] [id number] [place] [address] 14[address]- 2435 13 May, 2017 Bipolar disorder, unspecified F31.9 ; Panic attacks F41.0 and Personality disorder F60.9 [facility] [address] [place] [address] 33778- 7042 Apr, Bipolar disorder, unspecified F31.9 and Panic attacks F41.0 [facility] [address] [place] [id number] [place] [address] 19415 -3851 Mar, Homelessness Z59.0 ; Viral gastroenteritis A08.4 and BMI 40.0-44.9, adult Z68.41 [facility] [address] [place] [id number] [place] [address] 52862- 0857 August, Acute adjustment disorder with mixed anxiety and depressed mood F43.23 ; Excessive anger R45.4 and Generalized anxiety disorder F41.1 [facility] [address] [place] [id number] [place] [address] [id number] Apr, Dental examination Z01.20 and Dental caries K02.9 [facility] [address] [address]- [address]97 Feb, HTN (hypertension) I10 and Obesity E66.9 [facility] [address] [place] [id number] [place] [address] 38860- 2251 Feb, [facility] [address] [place] [id number] [place] [address] 32950- 1823 Feb, Bronchitis J40 [facility] [address] [place] [id number] [place] [address] 42524- 7371 14 Jul, 2014 [facility] [address] [place] [id number] [place] [address] 78239- 9520 13 Jul, 2014 [facility] [address] [place] [id number] [place] [address] 48806- 8132 Sep, [facility] [address] [place] [id number] [place] [address] 94062- 1837 Sep, [facility] [address] [place] [id number] [place] [address] 11619- 6303 Sep, [facility] [address] [place] [id number] [place] [address]- 7997 Sep, [facility] [place] [facility] [address] [id number] [place] [address]- 1693 Sep, [facility] [place] [facility] [address] [id number] [place] [address]- 3243 Sep, [facility] [place] [facility] [address] [id number] [place] [address]- 7426 Sep, [facility] [place] [facility] [address] [id number] [place] [address]- 9789 Sep, [facility] [place] [facility] [address] [id number] [place] [address]- 6922 Feb, [facility] [place] [facility] [address] [id number] [place] [address]- 4675 Feb, [facility] [place] [facility] [address] [id number] [place] [address]- 2945 Jan, [facility] [place] [facility] [address] [id number] [place] [address]- 3137 22 Jan, 2013 [facility] [place] [facility] [address] [id number] [place] [address]- 6857 17 Jan, 2013 [facility] [place] [facility] [address] [id number] [place] [address]- 4215 17 Jan, 2013 [facility] [place] [facility] [address] [id number] [place] [address]- 3783 14 Jan, 2013 [facility] [place] [facility] [address] [id number] [place] [address]- 6276 13 Jan, 2013 [facility] [place] [facility] [address] [id number] [place] [address]- 0072 11 Jan, 2013 [facility] [place] [facility] [address] [id number] [place] [address]- 2988 11 Jan, 2013 [facility] [place] [facility] [address] [id number] [place] [address]- 9407 10 Jan, 2013 [facility] [address] [id number] [place] [address]- 3862 10 Jan, 2013 [facility] [place] [facility] [address] [id number] [place] [address]- 5355 26 Dec, 2012 [facility] [place] [facility] [address] [id number] [place] [address]- 1724 19 Dec, 2012 [facility] [place] [facility] [address] [id number] [place] [address]- 4230 17 Dec, 2012 [facility] [address] [id number] [place] [address]- 1671 13 Dec, 2012 [facility] [place] [facility] [address] [id number] [place] [address]- 6316 12 Dec, 2012 [facility] [place] [facility] [address] [id number] [place] [address]- 9448 Nov, [facility] [place] [facility] [address] [id number] [place] [address]- 2124 Jul, [facility] [place] [facility] [address] [id number] [place] [address]- 1657 Jul, [facility] [place] [facility] [address] [id number] [place] [address]- 9528 Jul, [facility] [place] [facility] [address] [id number] [place] [address]- 3568 Jul, [facility] [place] [facility] [address] [id number] [address]- 0286 Jul, [facility] [place] [facility] [address] [id number] [place] [address]- 1481 Jul, [facility] [place] [facility] [address] [id number] [place] [address]- 3884 Jun, [facility] [place] [facility] [address] [id number] [address]- 9738 Jun, [facility] [place] [facility] [address] [id number] [place] [address]- 2546 Jun, [facility] [address] [facility] [id number] [place] [address]- 2546 Dec, [facility] [address] [facility] [id number] [place] [address]- 2546 Dec, [facility] [address] [facility] [id number] [place] [address]- 2546 Apr, IMMUNIZATIONS No Known Immunizations SOCIAL HISTORY Never Assessed REASON FOR VISIT SOCWK-IN PLAN OF CARE VITAL SIGNS MEDICATIONS No Known Medications RESULTS No Results PROCEDURES Procedure Date Ordered Result Body Site Alcohol and/or drug services May 20, 2017 INSTRUCTIONS MEDICATIONS ADMINISTERED No Known Medications MEDICAL (GENERAL) HISTORY Type Description Date Medical History Hypertension, she said it has been normal lately when it is checked (04/2017) Medical History Broken toe right great toe Surgical History Hernia repair by Dr. Fam Surgical History Tubal ligation Hospitalization History broken toe ER visit 03/2017
--- OUTSIDE RECORDS SUMMARY | 2018-03-20 12:42 | XMS REPORT ---
Author SHRAVAN Smith Organization eClinicalWorks Address Unknown Phone Unavailable Care Team Providers Care Supervisor Livestock Yard Name Role Phone SHRAVAN ROBLES CP Unavailable Allergies No Known Allergies Problems Problem Type Condition Code Onset Dates [...] Screening examination for venereal disease V74.5 Active Problem Other and unspecified hyperlipidemia 272.4 Active Problem Unspecified high-risk V23.9 Active Medications Medication Code System Code Instructions Start Date End Date Status Dosage Zithromax Z-Maurice [facility] [address]-06 250 MG Orally Once a day Feb 12, 2015 Feb 17, 2015 2 tablets on the first day, then 1 tablet daily for 4 days Results No Known Results Summary Purpose eClinicalWorks Submission
--- OUTSIDE RECORDS SUMMARY | 2018-03-20 12:42 | XMS REPORT ---
Author Author MARCOS PORTILLO Organization 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 Active 804925838 Problem Bipolar disorder, unspecified F31.9 Active 57175410 Problem HTN (hypertension) I10 Active [id number] ALLERGIES No Information ENCOUNTERS Encounter Location Date Diagnosis [place] [address] [address] Jul, Bipolar disorder, unspecified F31.9 ; Panic attacks F41.0 and Personality disorder F60.9 [place] [address] [address] Jul, Bipolar disorder, unspecified F31.9 ; Panic attacks F41.0 and Personality disorder F60.9 [place] [address] [place] [id number] [place] [address] Jun, [place] [address] [place] [id number] [place] [address] May, [place] [address] [address] May, Bipolar disorder, unspecified F31.9 ; Panic attacks F41.0 and Personality disorder F60.9 [place] [address] [place] [id number] [place] [address] May, Bipolar disorder, unspecified F31.9 ; Panic attacks F41.0 and Personality disorder F60.9 [facility] [address] [place] [id number] [place] [address] Apr, Bipolar disorder, unspecified F31.9 and Panic attacks F41.0 [facility] [id number] [place] [address] Mar, Homelessness Z59.0 ; Viral gastroenteritis A08.4 and BMI 40.0-44.9, adult Z68.41 [facility] [address] [place] [id number] [place] [address] August, Acute adjustment disorder with mixed anxiety and depressed mood F43.23 ; Excessive anger R45.4 and Generalized anxiety disorder F41.1 [facility] [address] [place] [id number] [place] [id number] Apr, 2015 Dental examination Z01.20 and Dental caries K02.9 [facility] [address] [place] [id number] [place] [address] Feb, HTN (hypertension) I10 and Obesity E66.9 [facility] [address] [address] Feb, [facility] [address] [place] [id number] [place] [address]- [address] Feb, Bronchitis J40 [facility] [address] [place] [id number] [place] [address]- [address] 14 Jul, 2014 [facility] [address] [place] [id number] [place] [address]- [address] 13 Jul, 2014 [facility] [address] [address] Sep, [facility] [address] [address] Sep, [facility] [address] [place] [id number] [place] [address]- [address] Sep, [facility] [place] [facility] [address] [id number] [place] [address] Sep, [facility] [place] [facility] [address] [id number] [place] [address] Sep, [facility] [place] [facility] [address] [id number] [place] [address] Sep, [facility] [place] [facility] [address] [id number] [place] [address] Sep, [facility] [place] [facility] [address] [id number] [place] [address]- [address] Sep, [facility] [place] [facility] [address] [id number] [place] [address]- [address] Feb, [facility] [place] [facility] [address] [id number] [place] [address]- [address] Feb, [facility] [place] [facility] [address] [id number] [place] [address]- [address] Jan, [facility] [place] [facility] [address] [id number] [place] [address]- [address] Jan, [facility] [place] [facility] [address] [id number] [place] [address]- [address]387 17 Jan, 2013 [facility] [place] [facility] [address] [id number] [place] [address]- 9598 17 Jan, 2013 [facility] [place] [facility] [address] [id number] [place] [address]- [address] 14 Jan, 2013 [facility] [place] [facility] [address] [id number] [place] [address]- [address] 13 Jan, 2013 [facility] [place] [facility] [address] [id number] [place] [address]- [address] 11 Jan, 2013 [facility] [place] [facility] [address] [id number] [place] [address]- [address] 11 Jan, 2013 [facility] [place] [facility] [address] [id number] [place] [address]- 9[address] 10 Jan, 2013 [facility] [address] [id number] [place] [address]- 0181 10 Jan, 2013 [facility] [place] [facility] [address] [id number] [place] [address]- [address] 26 Dec, 2012 [facility] [place] [facility] [address] [id number] [place] [address]- 8526 19 Dec, 2012 [facility] [place] [facility] [address] [id number] [place] [address]- 8364 17 Dec, 2012 [facility] [address] [id number] [place] [address]- 8061 13 Dec, 2012 [facility] [place] [facility] [address] [id number] [place] [address]- 1898 12 Dec, 2012 [facility] [address] [id number] [place] [address]- 8085 Nov, [facility] [place] [facility] [address] [id number] [address] Jul, [facility] [place] [facility] [address] [id number] [place] [address]- 3080 Jul, [facility] [place] [facility] [address] [id number] [place] [address]- [address] Jul, [facility] [place] [facility] [address] [id number], [place] [address]- [address] Jul, [facility] [place] [facility] [address] [id number], [place] [address] 9[address] Jul, [facility] [place] [facility] [address] [id number] [place] [address] Jul, [facility] [place] [facility] [address] [id number], [place] [address]- [address] Jun, [facility] [place] [facility] [address] [id number] [place] [address] Jun, [facility] [place] [facility] [address] [facility] [id number] [place] [address]- [address] Jun, [facility] [address] [facility] [id number] [place] [address]- [address]656 Dec, [facility] [address] [facility] [id number] [address]- [address] Dec, [facility] [address] [facility] [id number] [address] Apr, IMMUNIZATIONS No Known Immunizations SOCIAL HISTORY Never Assessed REASON FOR VISIT f/u PLAN OF CARE Activity Details Follow Up 2 Weeks Reason: VITAL SIGNS MEDICATIONS No Known Medications RESULTS No Results PROCEDURES Procedure Date Ordered Result Body Site Psychotherapy, patient &/family, 30 minutes, established patient May 20, 2017 INSTRUCTIONS MEDICATIONS ADMINISTERED No Known Medications MEDICAL (GENERAL) HISTORY Type Description Date Medical History Hypertension, she said it has been normal lately when it is checked (04/2017) Medical History Broken toe right great toe Surgical History Hernia repair by Dr. Fam Surgical History Tubal ligation Hospitalization History broken toe ER visit 03/2017
--- OUTSIDE RECORDS SUMMARY | 2018-03-20 12:43 | XMS REPORT | Continuity of Care Document ---
Author Author [facility] Address Unknown Phone Unavailable Allergies Active Description Code Type Severity Reaction Onset Reported/Identified Relationship to Patient Clinical Status Yes NO KNOWN DRUG ALLERGIES UNKNOWN NO KNOWN DRUG ALLERG Yes No Known Drug Allergies [id number] Drug Allergy Unknown N/A 06/27/2012 Yes morphine Drug Allergy N/A N/A 11/14/2012 Medications Medication Packaging Start Date Stop Date Route Dosage Sig TRAMADOL TAB 50 MG (ULTRAM) MG 03/201810/13/2017 ONCE&1708 Problems Date Dx Coded Attending Type Code Diagnosis Diagnosed By 10/08/2008 TIO REA DO 599.0 URINARY TRACT INFECTION 10/08/2008 JAH BRUNSON APRN A 599.0 URINARY TRACT INFECTION 10/08/2008 JAH BRUNSON APRN A 599.0 URINARY TRACT INFECTION 10/08/2008 JAH BRUNSON APRN A 599.0 URINARY TRACT INFECTION 10/08/2008 599.0 URINARY TRACT INFECTION 10/08/2008 599.0 URINARY TRACT INFECTION 10/08/2008 KENZIE REA DOA K 599.0 URINARY TRACT INFECTION 10/08/2008 KENZIE REA DOA K 599.0 URINARY TRACT INFECTION 10/08/2008 KENZIE REA DOA K 599.0 URINARY TRACT INFECTION 10/08/2008 599.0 URINARY TRACT INFECTION 10/08/2008 JAH BRUNSON APRN A 599.0 URINARY TRACT INFECTION 10/08/2008 REA KENZIE ESTRELLAA K 599.0 URINARY TRACT INFECTION 10/08/2008 KENZIE REA DOA K 599.0 URINARY TRACT INFECTION 10/08/2008 RONA ESTRELLA TIO K 599.0 URINARY TRACT INFECTION 04/07/2011 KENZIE REA DOA K 786.2 COUGH 04/07/2011 JAH BRUNSON APRN A 786.2 COUGH 04/07/2011 JAH BRUNSON APRN A 786.2 COUGH 04/07/2011 BOY CASTILLOJAH Carter A 786.2 COUGH 04/07/2011 786.2 COUGH 04/07/2011 786.2 COUGH 04/07/2011 RONA ESTRELLATIO K 786.2 COUGH 04/07/2011 REA DO, TIO K 786.2 COUGH 04/07/2011 REA DO, TIO K 786.2 COUGH 04/07/2011 786.2 COUGH 04/07/2011 BOY GRANTJAH A 786.2 COUGH 04/07/2011 REA DO, TIO K 786.2 COUGH 04/07/2011 REA DO, TIO K 786.2 COUGH 04/07/2011 REA DO, TIO K 786.2 COUGH 12/09/2011 TIO REA DO V25.09 CONTRACEPTIVE COUNSELING - GENERAL 12/09/2011 TIO REA DO V25.12 IUD REMOVAL 12/09/2011 REA TIO V76.2 CERVICAL CANCER SCREENING (PAP SMEAR) 12/09/2011 BOYJAH Carter APRN A V25.09 CONTRACEPTIVE COUNSELING - GENERAL 12/09/2011 BOY MAINTENANCE MACHINE REPAIRERJAH Carter A V25.12 Iud Removal 12/09/2011 BOY MAINTENANCE MACHINE REPAIRERJAH Carter A V76.2 CERVICAL CANCER SCREENING (PAP SMEAR) 12/09/2011 BOYJAH Carter APRN A V25.09 CONTRACEPTIVE COUNSELING - GENERAL 12/09/2011 BOY MAINTENANCE MACHINE REPAIRERJAH Carter A V25.12 Iud Removal 12/09/2011 BOY MAINTENANCE MACHINE REPAIRERJAH Carter A V76.2 CERVICAL CANCER SCREENING (PAP SMEAR) 12/09/2011 BOYJAH Carter APRN A V25.09 CONTRACEPTIVE COUNSELING - GENERAL 12/09/2011 BOYJAH Carter APRN A V25.12 Iud Removal 12/09/2011 BOY MAINTENANCE MACHINE REPAIRERJAH Carter A V76.2 CERVICAL CANCER SCREENING (PAP SMEAR) 12/09/2011 V25.09 CONTRACEPTIVE COUNSELING - GENERAL 12/09/2011 V25.12 Iud Removal 12/09/2011 V76.2 CERVICAL CANCER SCREENING (PAP SMEAR) 12/09/2011 V25.09 CONTRACEPTIVE COUNSELING - GENERAL 12/09/2011 V25.12 Iud Removal 12/09/2011 V76.2 CERVICAL CANCER SCREENING (PAP SMEAR) 12/09/2011 TIO REA DO K V25.09 CONTRACEPTIVE COUNSELING - GENERAL 12/09/2011 REA KENZIE ESTRELLAA K V25.12 Iud Removal 12/09/2011 TIO REA DO K V76.2 CERVICAL CANCER SCREENING (PAP SMEAR) 12/09/2011 REA KENZIE ESTRELLAA K V25.09 CONTRACEPTIVE COUNSELING - GENERAL 12/09/2011 REA KENZIE ESTRELLAA K V25.12 Iud Removal 12/09/2011 KENZIE REA DOA K V76.2 CERVICAL CANCER SCREENING (PAP SMEAR) 12/09/2011 KENZIE REA DOA K V25.09 CONTRACEPTIVE COUNSELING - GENERAL 12/09/2011 REA KENZIE ESTRELLAA K V25.12 Iud Removal 12/09/2011 KENZIE REA DOA K V76.2 CERVICAL CANCER SCREENING (PAP SMEAR) 12/09/2011 V25.09 CONTRACEPTIVE COUNSELING - GENERAL 12/09/2011 V25.12 Iud Removal 12/09/2011 V76.2 CERVICAL CANCER SCREENING (PAP SMEAR) 12/09/2011 JAH BRUNSON APRN A V25.09 CONTRACEPTIVE COUNSELING - GENERAL 12/09/2011 MIGUEL ANGEL BRUNSON APRNIDI A V25.12 Iud Removal 12/09/2011 MIGUEL ANGEL BRUNSON APRNIDI A V76.2 CERVICAL CANCER SCREENING (PAP SMEAR) 12/09/2011 TIO REA DO K V25.09 CONTRACEPTIVE COUNSELING - GENERAL 12/09/2011 KENZIE RAE DOA K V25.12 Iud Removal 12/09/2011 KENZIE REA DOA K V76.2 CERVICAL CANCER SCREENING (PAP SMEAR) 12/09/2011 TIO REA DO K V25.09 CONTRACEPTIVE COUNSELING - GENERAL 12/09/2011 KENZIE REA DOA K V25.12 Iud Removal 12/09/2011 KENZIE REA DOA K V76.2 CERVICAL CANCER SCREENING (PAP SMEAR) 12/09/2011 KENZIE REA DOA K V25.09 CONTRACEPTIVE COUNSELING - GENERAL 12/09/2011 KEZNIE REA DOA K V25.12 Iud Removal 12/09/2011 KENZIE REA DOA K V76.2 CERVICAL CANCER SCREENING (PAP SMEAR) 06/26/2012 TIO REA DO 640.00 THREATENED 06/26/2012 TIO REA DO V72.42 TEST POSITIVE RESULT 06/26/2012 BOY GRANT JAH A 640.00 Threatened 06/26/2012 BOY CASTILLON, JAH A V72.42 Test Positive Result 06/26/2012 BOY CASTILLON, JAH A 640.00 Threatened 06/26/2012 BOY CASTILLON, JAH A V72.42 Test Positive Result 06/26/2012 BOY CASTILLON, JAH A 640.00 Threatened 06/26/2012 BOY CASTILLON, JAH A V72.42 Test Positive Result 06/26/2012 640.00 Threatened 06/26/2012 V72.42 Test Positive Result 06/26/2012 640.00 Threatened 06/26/2012 V72.42 Test Positive Result 06/26/2012 REA DO, TIO K 640.00 Threatened 06/26/2012 REA DO, TIO K V72.42 Test Positive Result 06/26/2012 REA DO, TIO K 640.00 Threatened 06/26/2012 REA DO, TIO K V72.42 Test Positive Result 06/26/2012 REA DO, TIO K 640.00 Threatened 06/26/2012 REA DO, TIO K V72.42 Test Positive Result 06/26/2012 640.00 Threatened 06/26/2012 V72.42 Test Positive Result 06/26/2012 BOY GRANT, JAH A 640.00 Threatened 06/26/2012 BOY GRANT, JAH A V72.42 Test Positive Result 06/26/2012 REA DO, TIO K 640.00 Threatened 06/26/2012 REA DO, TIO K V72.42 Test Positive Result 06/26/2012 REA DO, TIO K 640.00 Threatened 06/26/2012 REA DO, TIO K V72.42 Test Positive Result 06/26/2012 REA DO, TIO K 640.00 Threatened 06/26/2012 REA DO, TIO K V72.42 Test Positive Result 06/27/2012 Ot 599.0 URIN TRACT INFECTION NOS 06/27/2012 Ot 632 MISSED 06/27/2012 Ot 646.63 INFECTION -ANTEPARTUM 06/27/2012 Ot 649.53 SPOTTING COMP , ANTEPARTUM COND 07/03/2012 BOY GRANT, JAH A 634.92 COMPLETE (SAB) 07/03/2012 BOY CASTILLON, JAH A 656.13 RH NEGATIVE 07/03/2012 BOY CASTILLON, JAH A V25.01 CONTRACEPTION - ORAL CONTRACEPTION 07/03/2012 BOY CASTILLON, JAH A 634.92 COMPLETE (SAB) 07/03/2012 BOY MAINTENANCE MACHINE REPAIRER, JAH A 656.13 RH NEGATIVE 07/03/2012 BOY MAINTENANCE MACHINE REPAIRER, JAH A V25.01 CONTRACEPTION - ORAL CONTRACEPTION 07/03/2012 BOY CASTILLON, JAH A 634.92 COMPLETE (SAB) 07/03/2012 BOY CASTILLON, JAH A 656.13 RH NEGATIVE 07/03/2012 BOY CASTILLON, JAH A V25.01 CONTRACEPTION - ORAL CONTRACEPTION 07/03/2012 634.92 COMPLETE (SAB) 07/03/2012 656.13 RH NEGATIVE 07/03/2012 V25.01 CONTRACEPTION - ORAL CONTRACEPTION 07/03/2012 634.92 COMPLETE (SAB) 07/03/2012 656.13 RH NEGATIVE 07/03/2012 V25.01 CONTRACEPTION - ORAL CONTRACEPTION 07/03/2012 KENZIE REA DOA K 634.92 COMPLETE (SAB) 07/03/2012 KENZIE REA DOA K 656.13 RH NEGATIVE 07/03/2012 RONA ESTRELLA TIO K V25.01 CONTRACEPTION - ORAL CONTRACEPTION 07/03/2012 REA DO TIO K 634.92 COMPLETE (SAB) 07/03/2012 RONA ESTRELLA TIO K 656.13 RH NEGATIVE 07/03/2012 RONA ESTRELLA TIO K V25.01 CONTRACEPTION - ORAL CONTRACEPTION 07/03/2012 REA DO TIO K 634.92 COMPLETE (SAB) 07/03/2012 REA DO TIO K 656.13 RH NEGATIVE 07/03/2012 REA DO TIO K V25.01 CONTRACEPTION - ORAL CONTRACEPTION 07/03/2012 634.92 COMPLETE (SAB) 07/03/2012 656.13 RH NEGATIVE 07/03/2012 V25.01 CONTRACEPTION - ORAL CONTRACEPTION 07/03/2012 MIGUEL ANGEL BRUNSON APRNIDI A 634.92 COMPLETE (SAB) 07/03/2012 BOY GRANT, JAH A 656.13 RH NEGATIVE 07/03/2012 BOY GRANT JAH A V25.01 CONTRACEPTION - ORAL CONTRACEPTION 07/03/2012 REA TIO ESTRELLA 634.92 COMPLETE (SAB) 07/03/2012 REA DOKENZIEA K 656.13 RH NEGATIVE 07/03/2012 REA DOKENZIEA K V25.01 CONTRACEPTION - ORAL CONTRACEPTION 07/03/2012 REA TIO ESTRELLA K 634.92 COMPLETE (SAB) 07/03/2012 REA DOKENZIEA K 656.13 RH NEGATIVE 07/03/2012 REA DOKENZIEA K V25.01 CONTRACEPTION - ORAL CONTRACEPTION 07/03/2012 REA TIO ESTRELLA K 634.92 COMPLETE (SAB) 07/03/2012 TIO REA DO K 656.13 RH NEGATIVE 07/03/2012 REA TIO ESTRELLA K V25.01 CONTRACEPTION - ORAL CONTRACEPTION 07/11/2012 BOY GRANT JAH A 634.91 INCOMPLETE (SAB) 07/11/2012 634.91 INCOMPLETE (SAB) 07/11/2012 634.91 INCOMPLETE (SAB) 07/11/2012 REA TIO ESTRELLA K 634.91 INCOMPLETE (SAB) 07/11/2012 TIO REA DO K 634.91 INCOMPLETE (SAB) 07/11/2012 TIO REA DO K 634.91 INCOMPLETE (SAB) 07/11/2012 634.91 INCOMPLETE (SAB) 07/11/2012 BOY CASTILLOEmma JAH A 634.91 INCOMPLETE (SAB) 07/11/2012 REA TIO ESTRELLA K 634.91 INCOMPLETE (SAB) 07/11/2012 REA TIO ESTRELLA K 634.91 INCOMPLETE (SAB) 07/11/2012 REA KENZIE ESTRELLAA K 634.91 INCOMPLETE (SAB) 11/14/2012 V23.2 , HIGH RISK W/ HX OF 11/14/2012 V83.81 CYSTIC FIBROSIS GENE CARRIER 11/14/2012 V23.2 , HIGH RISK W/ HX OF 11/14/2012 V83.81 CYSTIC FIBROSIS GENE CARRIER 11/14/2012 KENZIE REA DOA K V23.2 , HIGH RISK W/ HX OF 11/14/2012 KENZIE REA DOA K V83.81 CYSTIC FIBROSIS GENE CARRIER 11/14/2012 REA DO, TIO K V23.2 , HIGH RISK W/ HX OF 11/14/2012 REA DO, TIO K V83.81 CYSTIC FIBROSIS GENE CARRIER 11/14/2012 REA DO, TIO K V23.2 , HIGH RISK W/ HX OF 11/14/2012 REA DOKENZIEA K V83.81 CYSTIC FIBROSIS GENE CARRIER 11/14/2012 V23.2 , HIGH RISK W/ HX OF 11/14/2012 V83.81 CYSTIC FIBROSIS GENE CARRIER 11/14/2012 BOY MAINTENANCE MACHINE REPAIRER, JAH A V23.2 , HIGH RISK W/ HX OF 11/14/2012 BOY MAINTENANCE MACHINE REPAIRER, JAH A V83.81 CYSTIC FIBROSIS GENE CARRIER 11/14/2012 REA DO, TIO K V23.2 , HIGH RISK W/ HX OF 11/14/2012 REA , TIO K V83.81 CYSTIC FIBROSIS GENE CARRIER 11/14/2012 REA DO, TIO K V23.2 , HIGH RISK W/ HX OF 11/14/2012 REA DO, TIO K V83.81 CYSTIC FIBROSIS GENE CARRIER 11/14/2012 REA DO, TIO K V23.2 , HIGH RISK W/ HX OF 11/14/2012 REA KENZIE ESTRELLAA K V83.81 CYSTIC FIBROSIS GENE CARRIER 12/14/2012 642.00 BENIGN ESSENTIAL HYPERTENSION COMPLICATING CHILDBIRTH AND THE PUERPERIUM UNSPECIFIED TO EPISODE OF CARE 12/14/2012 649.10 OBESITY COMPLICATING CHILDBIRTH OR THE PUERPERIUM UNSPECIFIED TO EPISODE OF CARE OR NOT APPLICABLE 12/14/2012 TIO REA DO 642.00 BENIGN ESSENTIAL HYPERTENSION COMPLICATING CHILDBIRTH AND THE PUERPERIUM UNSPECIFIED TO EPISODE OF CARE 12/14/2012 TIO REA DO 649.10 OBESITY COMPLICATING CHILDBIRTH OR THE PUERPERIUM UNSPECIFIED TO EPISODE OF CARE OR NOT APPLICABLE 12/14/2012 TIO REA DO 642.00 BENIGN ESSENTIAL HYPERTENSION COMPLICATING CHILDBIRTH AND THE PUERPERIUM UNSPECIFIED TO EPISODE OF CARE 12/14/2012 TIO REA DO 649.10 OBESITY COMPLICATING CHILDBIRTH OR THE PUERPERIUM UNSPECIFIED TO EPISODE OF CARE OR NOT APPLICABLE 12/14/2012 TIO REA DO 642.00 BENIGN ESSENTIAL HYPERTENSION COMPLICATING CHILDBIRTH AND THE PUERPERIUM UNSPECIFIED TO EPISODE OF CARE 12/14/2012 TIO REA DO 649.10 OBESITY COMPLICATING CHILDBIRTH OR THE PUERPERIUM UNSPECIFIED TO EPISODE OF CARE OR NOT APPLICABLE 12/14/2012 642.00 BENIGN ESSENTIAL HYPERTENSION COMPLICATING CHILDBIRTH AND THE PUERPERIUM UNSPECIFIED TO EPISODE OF CARE 12/14/2012 649.10 OBESITY COMPLICATING CHILDBIRTH OR THE PUERPERIUM UNSPECIFIED TO EPISODE OF CARE OR NOT APPLICABLE 12/14/2012 JAH BRUNSON APRN A 642.00 BENIGN ESSENTIAL HYPERTENSION COMPLICATING CHILDBIRTH AND THE PUERPERIUM UNSPECIFIED TO EPISODE OF CARE 12/14/2012 JAH BRUNSON APRN A 649.10 OBESITY COMPLICATING CHILDBIRTH OR THE PUERPERIUM UNSPECIFIED TO EPISODE OF CARE OR NOT APPLICABLE 12/14/2012 TIO REA DO 642.00 BENIGN ESSENTIAL HYPERTENSION COMPLICATING CHILDBIRTH AND THE PUERPERIUM UNSPECIFIED TO EPISODE OF CARE 12/14/2012 TIO REA DO 649.10 OBESITY COMPLICATING CHILDBIRTH OR THE PUERPERIUM UNSPECIFIED TO EPISODE OF CARE OR NOT APPLICABLE 12/14/2012 TIO REA DO 642.00 BENIGN ESSENTIAL HYPERTENSION COMPLICATING CHILDBIRTH AND THE PUERPERIUM UNSPECIFIED TO EPISODE OF CARE 12/14/2012 TIO REA DO 649.10 OBESITY COMPLICATING CHILDBIRTH OR THE PUERPERIUM UNSPECIFIED TO EPISODE OF CARE OR NOT APPLICABLE 12/14/2012 TIO REA DO K 642.00 BENIGN ESSENTIAL HYPERTENSION COMPLICATING CHILDBIRTH AND THE PUERPERIUM UNSPECIFIED TO EPISODE OF CARE 12/14/2012 TIO REA DO 649.10 OBESITY COMPLICATING CHILDBIRTH OR THE PUERPERIUM UNSPECIFIED TO EPISODE OF CARE OR NOT APPLICABLE 12/21/2012 TIO REA DO V81.1 HYPERTENSION SCREENING 12/21/2012 TIO REA DO V81.1 HYPERTENSION SCREENING 12/21/2012 REA DO, TIO K V81.1 HYPERTENSION SCREENING 12/21/2012 V81.1 HYPERTENSION SCREENING 12/21/2012 BOY GRANT, JAH A V81.1 HYPERTENSION SCREENING 12/21/2012 REA DO, TIO K V81.1 HYPERTENSION SCREENING 12/21/2012 REA DO, TIO K V81.1 HYPERTENSION SCREENING 12/21/2012 REA DO, TIO K V81.1 HYPERTENSION SCREENING 01/11/2013 REA DO, TIO K V23.9 , HIGH-RISK (UNSPEC) 01/11/2013 REA DO, TIO K V74.5 STD SCREEN 01/11/2013 V23.9 , HIGH-RISK (UNSPEC) 01/11/2013 V74.5 STD SCREEN 01/11/2013 BOY MAINTENANCE MACHINE REPAIRER, JAH A V23.9 , HIGH-RISK (UNSPEC) 01/11/2013 BOY MAINTENANCE MACHINE REPAIRER, JAH A V74.5 STD SCREEN 01/11/2013 REA DO, TIO K V23.9 , HIGH-RISK (UNSPEC) 01/11/2013 REA DO, TIO K V74.5 STD SCREEN 01/11/2013 REA DO, TIO K V23.9 , HIGH-RISK (UNSPEC) 01/11/2013 REA DO, TIO K V74.5 STD SCREEN 01/11/2013 REA DO, TIO K V23.9 , HIGH-RISK (UNSPEC) 01/11/2013 REA DO, TIO K V74.5 STD SCREEN 01/12/2013 REA DO, TIO K 401.1 HYPERTENSION, BENIGN ESSENTIAL 01/12/2013 401.1 HYPERTENSION, BENIGN ESSENTIAL 01/12/2013 MIGUEL ANGEL BRUNSON APRNIDI A 401.1 HYPERTENSION, BENIGN ESSENTIAL 01/12/2013 REA DO, TIO K 401.1 HYPERTENSION, BENIGN ESSENTIAL 01/12/2013 REA DO, TIO K 401.1 HYPERTENSION, BENIGN ESSENTIAL 01/12/2013 REA DO, TIO K 401.1 HYPERTENSION, BENIGN ESSENTIAL 01/14/2013 CALLUM MARQUEZ MAINTENANCE MACHINE REPAIRER Ot 401.9 HYPERTENSION NOS 01/14/2013 CALLUM MARQUEZ APRN Ot 599.0 URIN TRACT INFECTION NOS 01/14/2013 CALLUM MARQUEZ MAINTENANCE MACHINE REPAIRER Ot 642.23 OLD HYPERTEN NEC-ANTEPAR 01/14/2013 CALLUM MARQUEZ MAINTENANCE MACHINE REPAIRER Ot 646.63 INFECTION-ANTEPARTUM 07/08/2013 JASON LEAVITT MD Ot 278.01 MORBID OBESITY 07/08/2013 JASON LEAVITT MD Ot 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 07/08/2013 JASON LEAVITT MD Ot 649.11 OBESITY COMP PREG/CHILDBIRTH/PUERPERIUM, 07/08/2013 JASON LEAVITT MD, Ot V06.1 YWKESJGEER-[id number]-GJDUUIVHE, COMBINED [ 07/08/2013 JASON LEAVITT MD, Ot V27.0 DELIVER-SINGLE LIVEBORN 07/08/2013 JASON LEAVITT MD, Ot V85.43 BODY MASS INDEX 50.0-59.9, ADULT 09/03/2013 RONA DO TIO K 719.45 PAIN IN JOINT INVOLVING PELVIC REGION AND THIGH 09/03/2013 REA DO TIO K V70.0 EXAM - ROUTINE H&P 09/03/2013 RONA ESTRELLA TIO K 719.45 PAIN IN JOINT INVOLVING PELVIC REGION AND THIGH 09/03/2013 REA DO, TIO K V70.0 EXAM - ROUTINE H&P 09/03/2013 REA DO, TIO K 719.45 PAIN IN JOINT INVOLVING PELVIC REGION AND THIGH 09/03/2013 REA DO, TIO K V70.0 EXAM - ROUTINE H&P 09/13/2013 REA DO, TIO K 272.4 DYSLIPIDEMIA 09/13/2013 REA DO, TIO K 276.51 DEHYDRATION 09/13/2013 REA DO, TIO K 790.4 ABNORMAL LFT (ELEVATED) 09/13/2013 REA DO, TIO K 272.4 DYSLIPIDEMIA 09/13/2013 REA DO, TIO K 276.51 DEHYDRATION 09/13/2013 REA DO, TIO K 790.4 ABNORMAL LFT (ELEVATED) 08/10/2015 COMFORT BYRD MD Ot V28.3 ENCOUNTER ROUTINE SCREEN FOR MALFORMATIO 08/10/2015 JASON LEAVITT MD Ot 642.43 MILD/NOS PREECLAMP-ANTEP 08/10/2015 JASON LEAVITT MD Ot 796.5 ABN SCREENING 08/10/2015 COMFORT BYRD MD Ot V28.3 ENCOUNTER ROUTINE SCREEN FOR MALFORMATIO 08/10/2015 DAGMAR LUCAS, JASON Lee Ot 642.43 MILD/NOS PREECLAMP-ANTEP 08/10/2015 DAGMAR LUCAS, JASON Lee Ot 796.5 ABN SCREENING 03/23/2017 Roge Miller 815.04 CLOSED FRACTURE OF NECK OF METACARPAL BONE(S) 03/23/2017 Roge Miller S62.251A DISP FX OF NECK OF FIRST METACARPAL BONE, RIGHT HAND, INIT 10/13/2017 Polina Heard 401.0 MALIGNANT ESSENTIAL HYPERTENSION 10/13/2017 Polina Heard 522.5 PERIAPICAL ABSCESS WITHOUT SINUS 10/13/2017 Polina Heard I10 ESSENTIAL (PRIMARY) HYPERTENSION 10/13/2017 Polina Heard K04.7 PERIAPICAL ABSCESS WITHOUT SINUS Procedures Code [place] [address] ROUTINE VENIPUNCTURE 06/26/2012 42403 URINE TEST (IN- HOUSE) 06/26/2012 47342 HCG QUANTITATIVE 06/26/2012 11235 BLOOD TYPE/Rh FACTOR 06/26/2012 4978218 ANTIBODY SCREEN (RESULT ONLY) 06/27/2012 69036 US OB - EARLY <14 WEEKS 06/29/2012 44920 ANTIBODY SCREEN (order) 06/29/2012 83596 ROUTINE VENIPUNCTURE 07/03/2012 J2790 RHOGHAM 300 MCG 07/03/2012 64718 HCG QUANTITATIVE 07/03/2012 01874 ROUTINE VENIPUNCTURE 07/05/2012 16135 HCG QUANTITATIVE 07/05/2012 98464 ROUTINE VENIPUNCTURE 07/11/2012 72138 HCG QUANTITATIVE 07/11/2012 44420 URINE TEST (IN- HOUSE) 11/14/2012 71405 ROUTINE VENIPUNCTURE 12/14/2012 10327 UA OB DIP 12/14/2012 92033 CBC 12/14/2012 12321 TSH 12/14/2012 9248842 ANTIBODY SCREEN (RESULT ONLY) 12/15/2012 93812 HIV ANTIBODIES (RML) 12/15/2012 61472 RUBELLA ANTIBODY, IGG 12/15/2012 34755 CULTURE URINE 12/15/2012 45464 URINE PROTEIN 24 HOUR 12/18/2012 43461 SYPHILLIS-STATE LAB 12/18/2012 14858 ANTIBODY SCREEN (order) 12/18/2012 97755 HEP B SURFACE ANTIGEN (STATE ) 12/18/2012 2000 BLOOD PRESSURE CHECK 12/21/2012 2000 BLOOD PRESSURE CHECK 12/28/2012 10070 ROUTINE VENIPUNCTURE 01/11/2013 19225 UA OB DIP 01/11/2013 13486 TRICHOMONAS (IN-HOUSE) 01/11/2013 98535 CMP 01/11/2013 3962618 GFR CALC (RESULT ONLY) 01/11/2013 06827 US OB - EARLY <14 WEEKS 01/12/2013 61557 CULTURE UROGENITAL 01/12/2013 16898 GC/CHLAM PROBE ([facility]) 01/12/2013 74874 UA OB DIP 01/12/2013 73.4 07/06/2013 73.6 07/06/2013 28352 ROUTINE VENIPUNCTURE 09/12/2013 16683 CBC 09/12/2013 2349613 GFR CALC (RESULT ONLY) 09/12/2013 61058 CMP 09/12/2013 74441 LIPID PANEL 09/12/2013 43812 TSH 09/12/2013 Results There is no data. Encounters ACCT No. Visit Date/Time Discharge Status Pt. Type Provider Facility Loc./Unit Complaint [id number] 09/17/2013 11:08:00 09/17/2013 23:59:59 CLS Outpatient TIO REA DO [id number] 09/12/2013 08:17:00 09/12/2013 23:59:59 CLS Outpatient TIO REA DO [id number] 09/03/2013 09:47:00 09/03/2013 23:59:59 CLS Outpatient TIO REA DO [id number] 01/22/2013 15:29:00 01/22/2013 23:59:59 CLS Outpatient [id number] 01/12/2013 09:48:00 01/12/2013 23:59:59 CLS Outpatient TIO REA DO [id number] 01/11/2013 10:21:00 01/11/2013 23:59:59 CLS Outpatient JAH BRUNSON APRN [id number] 12/28/2012 09:48:00 12/28/2012 23:59:59 CLS Outpatient TIO REA DO [id number] 12/21/2012 12:20:00 12/21/2012 23:59:59 CLS Outpatient TIO REA DO [id number] 07/11/2012 12:47:00 07/11/2012 23:59:59 CLS Outpatient JAH BRUNSON APRN [id number] 07/05/2012 14:45:00 07/05/2012 23:59:59 CLS Outpatient JAH BRUNSON APRN [id number] 07/03/2012 09:29:00 07/03/2012 23:59:59 CLS Outpatient JAH BRUNSON APRN [id number] 06/26/2012 14:39:00 06/26/2012 23:59:59 CLS Outpatient TOI REA DO [id number] 12/15/2012 15:59:00 Document Registration [id number] 11/14/2012 09:22:00 Document Registration [id number] 10/13/2017 16:38:00 10/13/2017 17:30:00 DIS Outpatient Polina Heard [id number] 03/23/2017 17:27:00 03/23/2017 18:10:00 DIS [place]patient [facility] [place] [id number] 10/13/2017 17:08:18 Document Registration [id number] 07/06/2013 07:00:00 07/08/2013 12:10:00 DIS Inpatient JASON LEAVITT MD Via [facility] [id number] 07/05/2013 11:39:00 07/05/2013 23:59:59 CLS Outpatient JASON LEAVITT MD Via [facility] [id number] 06/28/2013 11:17:00 06/28/2013 23:59:59 CLS Outpatient JASON LEAVITT MD [facility] [id number] 01/22/2013 09:56:00 01/22/2013 23:59:59 CLS Outpatient COMFORT BYRD MD [facility] RAD [id number] 01/14/2013 10:23:00 01/14/2013 11:23:00 DIS Emergency CALLUM MARQUEZ MAINTENANCE MACHINE REPAIRER [facility] ER [id number] 06/27/2012 17:28:00 Document Registration [id number] 07/14/2017 15:00:00 07/14/2017 23:59:59 CLS Outpatient MEGA TORRES APRN [facility]
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
[2018-03-20] MEDS ORDERED: HYDROcodone/APAP 7.5 MG/325 MG (LORTAB, LORCET PLUS) TABLET PO ONE (13:00)
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
--- NOTE | 2018-03-20 13:59 | Diagnostic Imaging Report ---
INDICATION: Right knee injury and pain. TIME OF EXAM: 01:38 p.m. FINDINGS: Three views of the right knee were obtained. Alignment is normal. Joint spaces are well maintained. The articular surfaces are smooth. No fracture, dislocation, or effusion is seen. There are three small well-corticated ovoid osseous densities projected adjacent to the right lateral epicondyle region. These appear to be chronic. IMPRESSION: No acute bony abnormality is detected. Dictated by: Dictated on workstation # [id number]
[2018-03-20 14:19] VITALS: BP 164/90
== END 2018-03-20 14:19 | disposition home or self-care (01) ==
LOC: EDUNIT# 12:36 → ER 12:37
DX: S70.01XA Contusion of right hip, initial encounter (principal); S70.02XA Contusion of left hip, initial encounter; F12.10 Cannabis abuse, uncomplicated; Z98.51 Tubal ligation status; Z87.440 Personal history of urinary (tract) infections; Z82.49 Family history of ischemic heart disease and other diseases of the circulatory system; V09.20XA Pedestrian injured in traffic accident involving unspecified motor vehicles, initial encounter; Y92.480 Sidewalk as the place of occurrence of the external cause
CPT/HCPCS: 73523; 73562